=== PATIENT | male | born 1960 | race Caucasian/White ===

== ENCOUNTER 2018-09-19 11:43 | Outpatient (REF) | payer BC, SELFPAY ==
[2018-09-19 12:56] LABS: HCT 45.5 % (40.0-50.0); Mean Corpuscular Hemoglobin 28.6 pg (27.0-33.0); Mean Corpuscular Volume 86.7 fL (80-95); Mean Platelet Volume 12.8 fL (8.0-11.0); Platelet Count 153 x1000/uL (130-400); RBC 5.25 m/cumm (4.50-6.00); RBC Distribution Width 14.3 % (11.8-14.1); White Blood Cell Count 6.57 k/cumm (4.4-10.8)
[2018-09-19 13:43] LABS: Hemoglobin A1C 5.9 % (4.5-6.2)
[2018-09-19 15:26] LABS: ALT 39 U/L (12-78); AST 26 U/L (15-37); Albumin 3.8 g/dL (3.4-5.0); Alkaline Phosphatase 90 U/L (46-116); Anion Gap 9.8 mmol/L (3-11); BUN 21 mg/dL (7-18); Bilirubin, Total 1.1 mg/dL (0.2-1.0); CO2 28.2 mmol/L (21.0-32.0); CREATININE 1.13 mg/dL (0.70-1.30); Calcium 9.1 mg/dL (8.5-10.1); Chloride 103 mmol/L (98-107); Glucose 96 mg/dL (70-100); Potassium 4.4 mmol/L (3.5-5.1); Sodium 141 mmol/L (136-145); TSH (W/Ref FT4) 0.97 uIU/mL (0.358-3.74); Total Protein 7.7 g/dL (6.4-8.2)
[2018-09-19 15:43] LABS: Cholesterol 201 mg/dL (50-200); HDL Cholesterol 47 mg/dL (40-60); LDL CHOLESTEROL 134 mg/dL (<100); Triglyceride 89 mg/dL (30-150)
[2018-09-19 20:06] LABS: PROTEIN 9.2 mg/dL
[2018-09-19 20:52] LABS: COMMENT (LAB VIEW ONLY) 218.13 mg/dL; COMMENT (LAB VIEW ONLY) 218.14 mg/dL; Microalb ug/mg Crea 5.4 ug/mg Cr; Prot/Crea Ur Ratio 0.04
[2018-09-20 10:35] LABS: PSA, Screening 0.7 ng/ml (0-3.5)
== END 2018-09-19 12:03 ==
LOC: NCHCN 11:43
PROVIDERS: PCP Nurse Practitioner Family; Visit Provider Nurse Practitioner Family
DX: I10 Essential (primary) hypertension (principal); E78.5 Hyperlipidemia, unspecified; R53.83 Other fatigue; Z83.3 Family history of diabetes mellitus; Z13.1 Encounter for screening for diabetes mellitus; Z12.5 Encounter for screening for malignant neoplasm of prostate
CPT/HCPCS: 80053; 80061; 83721; 84153; 85027; 82043; 82565; 82570; 83036; 84156; 84443

== ENCOUNTER 2018-10-29 02:23 | Outpatient (CLI) | payer BC, SELFPAY ==
--- NOTE | 2018-11-01 11:10 | HOLTER_ITS ---
HOLTER MONITOR DATE OF DICTATION November 01, 2018 INDICATION Chest pain. Baseline sinus rhythm. Average heart rate 75 beats per minute. Minimum heart rate 49 beats per minute. Max heart rate 135 beats per minute. Moderate isolated PVCs. No nonsustained VT. Rare isolated PACs. No SVT or atrial fibrillation. No significant chadwick arrhythmias or pauses. No diary entries recorded. Overall sinus rhythm with isolated ectopy. No significant chadwick or tachyarrhythmias. Maykel Moreno M.D. Kip T - 11/01/18
== END 2018-10-29 02:43 ==
PROVIDERS: PCP Nurse Practitioner Family; Visit Provider Nurse Practitioner Family
DX: R07.89 Other chest pain (principal); I49.3 Ventricular premature depolarization
CPT/HCPCS: 93225

== ENCOUNTER 2018-10-31 14:58 | Outpatient (CLI) | payer BC, SELFPAY | END 2018-10-31 15:18 | PROVIDERS: PCP Nurse Practitioner Family; Visit Provider Nurse Practitioner Family | DX: R07.89 Other chest pain (principal); I49.3 Ventricular premature depolarization | CPT/HCPCS: 93226 ==

== ENCOUNTER 2019-03-01 02:19 | Emergency (ER) | payer BC, SELFPAY ==
[2019-03-01 02:21] VITALS: BP 183/103; PULSE 62; RESP 20; TEMP 37.1; O2SAT 99
--- NOTE | 2019-03-01 02:41 | ED.GENADUL_ITS ---
Discharge Plan Disposition Patient Disposition: HOME Condition: Good Discharge Details Chief Complaint: EyeProblem Clinical Impression: Corneal rust ring of right eye, Acute foreign body of right eye Primary Care Provider: Eri Francois ED Provider: Facundo Nieto Home Meds and New Rx's Prescriptions: No Action oxycodone-acetaminophen 1 TAB tablet 1 - 2 tab PO Q4H PRN PRNQty: 90 RF: 0 oxycodone-acetaminophen [Percocet] 1 EACH tablet 1 ea PO QID PRN PRNQty: 12 RF: 0 Discharge Instructions Instructions: Eye Foreign Body (ED) Additional Instructions: The metal foreign body was removed, and the majority of the rust ring was also removed. There is a very small minimal amount left. Please follow-up with the branch logistics supervisor as soon as possible for reassessment. If you are unable to get follow-up with your own branch logistics supervisor by tomorrow, please follow-up promptly with Dr. Valdez's office. Please use the erythromycin ointment as directed, apply a 1 inch ribbon 3 times daily to the affected eye. If you notice any worsening of your symptoms, or any new symptoms such as vomiting, diarrhea, fever, chills, shortness of breath, chest pain, numbness, weakness, or fainting , please return immediately to the emergency department for reevaluation. Please follow up with your primary care provider as soon as possible for reassessment and reevaluation. As always, it was a pleasure participating in your medical care today. [facility], [address] , [place] [address] [facility]errals: [facility] - Medical Decision Making This is a pleasant 59-year-old male who presents today for evaluation of a foreign body in his right eye. He got it in his eye yesterday when he is working on a car, comes in tonight due to continued pain and foreign body sensation. Exam demonstrates a small piece of metal and an associated rust ring on the medial component of the right eye at the most medial portion of the iris. Eversion of both lids demonstrate no evidence of other retained foreign body. No other uptake. Negative Jovanny sign. Using a TB needle the piece of metal was able to be easily extracted. Using the optical bur the rust ring was removed. Patient tolerated this all very well. Tetanus is up-to-date. [place] ssessment demonstrates no pain, normal visual acuity bilaterally. Patient will be given erythromycin ointment for 3 times daily application for comfort. We will recommend close follow-up with optometry. I have extensively reviewed the treatment plan and discharge instructions with the patient. I have addressed all patient concerns at this time. The patient was made aware of what symptoms to monitor for that would warrant a return to the emergency department. Discussed the plan with the patient, they demonstrate verbal understanding and agreement with our assessment and plan at this time. HPI General Date/Time Provider Initiated Documentation: 03/01/19 02:20 . HPI Narrative: This is a pleasant 59-year-old male with a past medical history of hypertension, who presents today for evaluation of a foreign body in his right eye. Patient states that he was working on a car when a small bit of rest got into his right eye. Tetanus was updated to the last 10 years. He does not wear contact lenses. Aside for the foreign body sensation he denies any other complaints at this time. No other modifying factors. Light does make the pain worse. He denies any significant discharge, headache, or other vision changes otherwise. Related Data Home Medications Medication Instructions Recorded Confirmed oxycodone-acetaminophen 1 - 2 tab PO Q4H PRN PRN #90 tab 11/25/14 06/29/15 oxycodone-acetaminophen [Percocet 1 ea PO QID PRN PRN #12 tablet 06/29/15 5-325 mg Tablet] Previous Rx's Medication Instructions Recorded oxycodone-acetaminophen 1 - 2 tab PO Q4H PRN PRN #90 tab 11/25/14 oxycodone-acetaminophen [Percocet 1 ea PO QID PRN PRN #12 tablet 06/29/15 5-325 mg Tablet] Allergies Allergy/AdvReac Type Severity Reaction Status Date / Time Penicillins AdvReac Intermediate Nausea Unverified 06/29/15 21:28 General Stated Complaint: EyeProblem ELIZABETH: 3 Review of Systems Review of Systems All systems reviewed & are unremarkable except as noted in HPI and below PFSH Social History Smoking/Tobacco Use Status: Former Tobacco Use Alcohol Intake: current Alcohol Intake frequency: a few times a week Drug use: Never Do you feel safe at home: Yes Do you feel safe in your relationship?: Yes Exam Narrative Exam Narrative: 1.Const: Well-nourished, Well-developed, appearing stated age 2.Eyes: Right eye: EOMI, PERRL, Peripheral vision intact. No nystagmus. Fundoscopic exam shows normal optic discs and normal vasculature. No external s igns of preseptal cellulitis, no redness around the eye, no proptosis. No hyphema, no signs of trauma around the eye, no periorbital emphysema. Fluorescein exam positive for uptake with a small piece of metal/rust at the 3 o'clock position just medial to the pupil on the far medial component of the iris. Mild rust ring is noted surrounding this negative Jovanny sign. 3.ENT: Atraumatic external nose and ears. Moist MM. Neck: Symmetric, trachea midline, No thyromegaly. 4.CVS: +S1/S2, No murmurs or gallops. Peripheral pulses 2+ and equal in all extremities. Brisk capillary refill in all extremities. 5.RESP: Unlabored respiratory effort. Clear to auscultation bilaterally. No wheezes rales or rhonchi 6.GI: Soft, Nontender/Nondistended, No hepatosplenomegaly. No guarding or rebound. 7.MSK: Normocephalic/Atraumatic, Extremities w/o deformity or ttp No cyanosis or clubbing, Normal movement of all extremities 8.Skin: Warm, Dry. No rashes or lesions. 9.Neuro: terminal gauger II-XII grossly intact. Sensation grossly intact, no focal neurologic deficits. 10.Psych: (AAO) x3. Appropriate mood and affect Course Vital Signs Temperature 37.1 C 03/01/19 02:21 Pulse 62 03/01/19 02:21 Respiratory Rate 20 03/01/19 02:21 Blood Pressure 183/103 H 03/01/19 02:21 Pulse Oximetry 99 03/01/19 02:21 Temperature 37.1 C 03/01/19 02:21 Temperature Source Tympanic 03/01/19 02:21 Pulse 62 03/01/19 02:21 Respiratory Rate 20 03/01/19 02:21 Respiratory Effort 03/01/19 02:24 Blood Pressure 183/103 H 03/01/19 02:21 Pulse Oximetry 99 03/01/19 02:21 Oxygen Delivery Method Room Air 03/01/19 02:21 Oxygen Flow Rate 0 03/01/19 02:21 Pain Level 0 03/01/19 02:21
--- NOTE | 2019-03-01 02:44 | NUR.NOTE ---
Nursing NoteFAXED NOTE AND REQUEST TO [facility] 03/01/19:
[2019-03-01 02:51] VITALS: BP 189/110; PULSE 76; RESP 20; O2SAT 97
== END 2019-03-01 02:51 | disposition home or self-care (01) ==
PROVIDERS: Emergency Provider Student in an Organized Health Care Education/Training Program; PCP Nurse Practitioner Family
DX: T15.01XA Foreign body in cornea, right eye, initial encounter (principal); I10 Essential (primary) hypertension
CPT/HCPCS: 65220

== ENCOUNTER 2019-10-14 13:38 | Outpatient (REF) | payer BC, SELFPAY ==
[2019-10-14 13:54] LABS: HCT 45.3 % (40.0-50.0); HGB 14.9 g/dL (13.5-17.5); Mean Corp. HGB Concentration 32.9 g/dL (32.0-36.0); Mean Corpuscular Hemoglobin 28.4 pg (27.0-33.0); Mean Corpuscular Volume 86.5 fL (80-95); Mean Platelet Volume 13.3 fL (8.0-11.0); Platelet Count 153 x1000/uL (130-400); RBC 5.24 m/cumm (4.50-6.00); RBC Distribution Width 14.2 % (11.8-14.1)
[2019-10-14 13:59] LABS: Anion Gap 10.7 mmol/L (3-11); BUN 16 mg/dL (7-18); CO2 25.3 mmol/L (21.0-32.0); CREATININE 1.09 mg/dL (0.70-1.30); Calcium 8.5 mg/dL (8.5-10.1); Chloride 104 mmol/L (98-107); Glucose 120 mg/dL (74-106); Potassium 3.9 mmol/L (3.5-5.1); Sodium 140 mmol/L (136-145)
[2019-10-14 14:13] LABS: Hemoglobin A1C 5.9 % (3.8-5.6)
== END 2019-10-14 13:58 ==
LOC: NCHCN 13:38
PROVIDERS: PCP Nurse Practitioner Family; Visit Provider Nurse Practitioner Family
DX: R73.03 Prediabetes (principal); I10 Essential (primary) hypertension; R51 Headache
CPT/HCPCS: 80048; 85027; 83036

== ENCOUNTER 2019-10-20 07:31 | Emergency (ER) | payer BC, SELFPAY ==
[2019-10-20] VITALS (29 sets, daily range): BP systolic 132–206; BP diastolic 71–117; PULSE 61–84; RESP 15–23; TEMP 36.8; O2SAT 89–97
--- NOTE | 2019-10-20 07:40 | ED.GENADUL_ITS ---
Discharge Plan Disposition Patient Disposition: HOME Condition: Improving Discharge Details Chief Complaint: Headache Clinical Impression: Headache, Hypertensive urgency, Aneurysm, cerebral, nonruptured Primary Care Provider: Henri Kern ED Provider: Karena Pina Home Meds and New Rx's Prescriptions: New amlodipine 2.5 mg tablet 2.5 mg PO DAILY Qty: 14 RF: 0 ondansetron 4 mg tablet,disintegrating 4 mg PO Q6H PRN (Reason: nausea and vomiting) Qty: 14 RF: 0 Continued atorvastatin [Lipitor] 20 mg Tablet 20 mg PO .QHS RF: 0 lisinopril 20 mg Tablet 20 mg PO DAILY RF: 0 clobetasol 0.05 % Cream TOPICAL BID RF: 0 aspirin 81 mg Tablet,Delayed Release (Dr/Ec) 81 mg PO DAILY RF: 0 omeprazole 20 mg Capsule,Delayed Release(Dr/Ec) 20 mg PO DAILY RF: 0 Flovent HFA 220 mcg/actuation Hfa Aerosol Inhaler 2 puff INHALATION BID RF: 0 albuterol sulfate [ProAir HFA] 90 mcg/actuation Hfa Aerosol Inhaler 2 puff INHALATION .BEFORE EXERCISE PRNRF: 0 fluticasone propionate [Flonase Allergy Relief] 50 mcg/actuation [place],Suspension 1 spray INTRANASAL BID RF: 0 Discharge Instructions Instructions: Hypertension (ED), General Headache (ED), Nonruptured Cerebral Aneurysm (GEN) Additional Instructions: Please continue medications as previously prescribed. Please add the daily amlodipine to help with your blood pressure. It is felt that this elevation of blood pressure may have been what caused her headache today. Incidentally, your noted to have a nonruptured aneurysm on your imaging today. I did speak with neurosurgery who would like to follow-up with you to discuss surgical management of this to help prevent rupture. Please call tomorrow morning to schedule follow-up appointment [phone]. This is with neurosurgery at [facility], you will need follow-up with Dr. Fuchs. I also spoke with your primary care, they are expecting to see you this week. Please call tomorrow morning to schedule close follow-up appointment. Appointment will be held in the parking lot to help prevent exposure to any illness. If develop fever/chills, increased pain, inability stay hydrated or other new/worsening symptoms please seek care urgently once again. Otherwise, please call primary care tomorrow morning to schedule appointment. Referrals: Henri Kern NP [Primary Care Provider] - Medical Decision Making Patient is a pleasant 59-year-old male presenting today with chief complaint of headache x2 weeks. Patient has past medical history significant hypertension per patient report. States that he has had constant headache for the past 2 weeks. States that ibuprofen has alleviated this time. States that today the headache is increased and is now reporting that he has some nausea and blurred vision. When I was evaluating the patient initially, he did begin vomiting which is new since the onset of headache 2 weeks ago. States he has been having difficulty sleeping secondary to the pain. He reports he has never had headaches like this historically. He is not anticoagulated, no history of bleed, no history of stroke or other intracranial abnormality. States that the headache was a sudden onset and has been persistent with no notable exacerbating sources. Patient has been seen twice by his primary care provider. Is in her last note, and they had been concerned that this was seasonal allergies and treated as such. He reports that he has been taking his medications as were prescribed 2 days ago and reports that the pain has continued to increase despite Benadryl, Flonase, sertraline. Patient was noted to be slightly hypertensive in the office with a blood pressure of 140/86. Measurements at home have been similar. He denies any neck pain. No rash. No fevers or chills. Denies any recent travel. Denies any chest pain or shortness of breath. On exam, patient appears uncomfortable. He is an obese male. She did be hypertensive with a blood pressure of 206/99. His neurologic exam is intact without any abnormality. He has no nuchal rigidity. He has normal cardiac and respiratory exam. No rashes noted. Shortly after my physical exam, the patient did begin actively vomiting. Patient will receive Ativan and Zofran. Is unclear at this time if the blood pressure is secondary to the patient's increased vomiting as he did not have this at his previous visits for the same complaint. Plan to image the patient with and without contrast. EKG was obtained and reviewed by Dr. Mejia. Patient is in a normal sinus rhythm with a rate of 79 with no acute ischemic changes noted. Patient returned from CT, I do not see any evidence of bleed on my review, awaiting radiology review. He continues to report mild nausea and headache although he reports that things are improving. We will augment this with Reglan and Benadryl. CBC is without significant abnormality. No abnormalities noted in his coagulation studies. Glucose is slightly high at 119 but otherwise CMP is within normal limits. TSH, troponin and ESR pending. Consulted by radiologist who advised that they note left 7mm left ICA. No evidence of active bleeding. Likely other small aneurysms. Contacted neurosurgery at [facility] for consultation. Patient is more comfortable at this time, blood pressure has come down at 144/71. Dr. Sewell with neurosurgery at [facility], he advised clinic f/u this week. Advisec could be hypertensive urgency as well. Does not feel that this is likely associated with the aneurysm. He advised no specific BP goals. He advised referral to Dr. Fuchs who is neurovascular surgeon. Needs overall cardiovascular control Spoke with Henri Hanson NP who advised amlodipine or HCTZ. She is concerned that patient may not be compliant with HCTZ so we have decided on amlodipine. Will start off at 2.5mg. She will see the patient in the parking lot this week for reevaluation at the clinic for BP recheck and eval. She is aware of the recommendations set forth by neurosurgery. Discussed these findings, concerns and recommendations with the patient. He will be given his dosing of Amlodipine here and we will discharge home with close follow up. Patient was given strict return precautions. I encouraged generalized healthy lifestyle. He will continue with his previously prescribed medications. Prescription for amlodipine was given to the patient. We will also prescribe Zofran in the event that he has any recurrence of his nausea as this may also have led to an increase in his blood pressure. He was given strict return precautions. We will contact both neurosurgery as well as primary care tomorrow. All his questions and concerns were addressed and he is in agreement this plan. HPI General Mode of arrival: ambulatory . Date/Time Provider Initiated Documentation: 10/20/19 07:40 . Limitations to Documentation: no limitations . Information obtained by: patient and RN notes reviewed . History of Present Illness 59 year old M presents to the emergency department with the chief complaint of headache, described as severe, with intensity rated at 8. Quality is described as stabbing, and is localized to the head. Patient reports no radiation. Patient started experiencing this week(s) (2) and it has been constant. Medication improves symptom(s), (some relief with ibuprofen) No exacerbating factors reported . Patient notes headaches, loss of appetite and nausea/vomiting; denies chest pain, cough, diaphoresis, fever/chills, rash, shortness of breath, syncope and weakness. Patient did receive the following treatments prior to arrival, none Related Data Home Medications Medication Instructions Recorded Confirmed Flovent HFA 2 puff INHALATION BID 10/20/19 10/20/19 albuterol sulfate [ProAir HFA] 2 puff INHALATION .BEFORE EXERCISE 10/20/19 10/20/19 PRN amlodipine 2.5 mg PO DAILY #14 tab 10/20/19 aspirin 81 mg PO DAILY 10/20/19 10/20/19 atorvastatin [Lipitor] 20 mg PO .QHS 10/20/19 10/20/19 clobetasol TOPICAL BID 10/20/19 fluticasone propionate [Flonase 1 spray INTRANASAL BID 10/20/19 10/20/19 Allergy Relief] lisinopril 20 mg PO DAILY 10/20/19 10/20/19 omeprazole 20 mg PO DAILY 10/20/19 10/20/19 ondansetron 4 mg PO Q6H PRN #14 tab 10/20/19 Previous Rx's Medication Instructions Recorded amlodipine 2.5 mg PO DAILY #14 tab 10/20/19 ondansetron 4 mg PO Q6H PRN #14 tab 10/20/19 Allergies Allergy/AdvReac Type Severity Reaction Status Date / Time Penicillins AdvReac Intermediate Nausea Unverified 10/20/19 07:42 General ELIZABETH: 3 Review of Systems Constitutional Constitutional: Reports as per HPI, Denies chills, Reports fatigue, Denies fever(s), Denies frequent falls, Reports headache(s), Denies snoring and Denies weakness Eyes Eyes: Reports as per HPI, Denies blurry vision, Reports change in vision (feels this morning like it is slightly blurred) and Denies photophobia ENT Ears, Nose, Mouth, and Throat: Denies vertigo, Reports headache(s) and Denies neck pain Cardiovascular Cardiovascular: Reports as per HPI, Denies chest pain, Reports lightheadedness, Denies radiating jaw, neck or arm pain, Denies dyspnea and Denies dyspnea on exertion Respiratory Respiratory: Reports as per HPI, Denies chest congestion, Denies cough, Denies dyspnea, Denies dyspnea on exertion, Denies snoring, Denies stridor and Denies wheezing Gastrointestinal Gastrointestinal: Reports as per HPI, Denies abdominal pain, Denies change in bowel habits, Reports nausea and Denies vomiting Genitourinary Genitourinary: Reports system reviewed and no additional complaints, except as documented (denies change in urinary habits) Musculoskeletal Musculoskeletal: Reports as per HPI, Denies back pain, Denies myalgias, Denies muscle cramps, Denies neck pain and Denies numbness Integumentary/Breasts Skin/Breast: Reports as per HPI and Denies rash Neurologic Neurologic: Reports as per HPI, Denies abnormal movements, Denies abnormal speech, Denies behavioral changes, Denies confusion, Denies vertigo, Denies frequent falls, Reports headache(s), Denies localized weakness, Denies numbness, Denies sensory deficit and Denies weakness Psychiatric Psychiatric: Denies behavioral changes and Denies confusion Endocrine Endocrine: Reports fatigue Allergic/Immunologic Allergic/Immunologic: Denies wheezing [facility] Social History Smoking/Tobacco Use Status: Former Tobacco Use Alcohol Intake: current Alcohol Intake frequency: a few times a week Drug use: Never Do you feel safe at home: Yes Do you feel safe in your relationship?: Yes Exam Const General: cooperative, uncomfortable, no acute distress, well developed, well groomed and ill appearing acutely Nutritional Appearance: well nourished and obese Orientation: alert, awake and oriented x3 HENMT Head: normal to inspection, no palpable skull fracture, normocephalic and atraumatic Ears: hearing grossly normal bilaterally, external ears normal and TM's normal bilaterally General nose exam: external nose normal Mouth: oral mucosae normal, lip normal, tongue normal and mucous membranes dry (appears dry) Throat: posterior oropharynx normal Eyes General: appearance normal, both eyes and all related structures Visual Green: normal visual green by confrontation Alignment and Position: alignment normal Periorbital: periorbital findings normal Eyelids: eyelids normal Sclera: sclerae normal Cornea: corneas normal Pupils: PERRL EOM: EOM intact bilaterally Neck Neck: normal visual inspection, full ROM, no lymphadenopathy and no meningeal signs Resp Effort & Inspection: normal respiratory effort, able to speak in complete sentences and no respiratory distress Auscultation: clear to auscultation bilaterally, no rales, no rhonchi and no wheezes Cardio Rate: regular rate Rhythm: regular rhythm Heart Sounds: S1 normal and S2 normal GI Inspection: normal to inspection, non-distended and obesity Palpation: soft, no hepatosplenomegaly, not firm, no guarding, not rigid and nontender Percussion: normal to percussion Auscultation: normal bowel sounds Back/Spine/Pelvis Cervical Spine: normal cervical lordosis and cervical ROM normal Skin General skin exam: no rashes or lesions noted Neuro General: patient alert, patient awake and patient oriented x3 Cranial Nerves: CN's II-XI intact bilaterally Cognition: normal cognition Speech: speech normal Gait: normal gait Motor: muscle tone normal throughout, strength 5/5 throughout, no pronator drift, no movement abnormalities noted and no fasciculations Sensory Exam: no sensory deficits noted Coordination: [id number] test normal and [id number] test normal Extrem General: normal to inspection, capillary refill normal, no pedal edema and no calf tenderness Psych Appearance: grossly normal and well kempt Mental Status: mental status grossly normal Speech and Movement: speech and movement normal
--- NOTE | 2019-10-20 07:57 | DI.CT_ITS ---
EXAM: CT BRAIN NECK CTA CLINICAL HISTORY: SORIA 2 weeks, vomiting, hypertensive TECHNIQUE: Axial CT angiography was performed with multi-slice acquisition and multi-planar and/or 3 D reconstructions. COMPARISON: No exams were available for comparison FINDINGS: Noncontrast cranial CT was initially performed and shows no evidence of acute intracranial hemorrhage , mass effect, or midline shift. The orbital and temporal bone structures appear intact. CT angiography of the neck and head was performed with intravenous infusion of 100 cc of Omnipaque 35 0. Aortic arch is nonvisualized. There is minimal calcified plaque of the carotid bulbs bilaterally. O therwise the common, internal, and external carotid arteries as visualized appear within normal limit s. Slightly left dominant vertebral artery circulation. Otherwise the vertebral arteries and basilar ar jarocho as visualized appear intact. No aneurysm, stenosis, or dissection. Intracranially, the vertebrobasilar circulation is unremarkable as described above. Unremarkable belen earance of the posterior cerebral arteries bilaterally. Intracranial right internal carotid artery is unremarkable except for a questionable 2 millimeter rig ht supraclinoid saccular aneurysm, this is a questionable finding. On the left, the supraclinoid internal carotid artery gives rise to saccular aneurysm measuring up to about 5 x 7 x 5 millimeters in diameter with about a 3 x 2 millimeter diameter neck. An additional questionable 2 millimeter aneurysm may be present just distal to this aneurysm. The middle and anterior cerebral arteries are unremarkable in appearance bilaterally as are their bra nches. No intracranial mass lesion or enhancing lesion. 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 Additional tiny ICA aneurysms may be present in the supraclinoid portion bilaterally, these measure n o more than 2 millimeter in diameter if present.
[2019-10-20] MEDS: Normal Saline 1,000 ML 150 ML IV (08:00)
[2019-10-20] MEDS: Ondansetron 4 MG/2 ML VIAL IVP (08:00)
[2019-10-20 08:06] LABS: Abs Immature Grans 0.03 k/cumm (0.0-0.09); Absolute Basophil Count 0.01 k/cumm (0.0-0.2); Absolute Eosinophil Count 0.12 k/cumm (0.0-0.7); Absolute Lymphocyte Count 2.04 k/cumm (1.2-3.4); Absolute Monocyte Count 0.59 k/cumm (0.11-0.7); Absolute Neutrophil Count 5.97 k/cumm (1.2-6.7); Basophils % 0.1; Eosinophils % 1.4; HGB 16.3 g/dL (13.5-17.5); Immature Grans % 0.3 %; Lymphocytes % 23.3; Mean Corp. HGB Concentration 33.3 g/dL (32.0-36.0); Mean Corpuscular Hemoglobin 28.4 pg (27.0-33.0); Mean Corpuscular Volume 85.4 fL (80-95); Mean Platelet Volume 12.1 fL (8.0-11.0); Monocytes % 6.7; Neutrophils % 68.2; Platelet Count 197 x1000/uL (130-400); RBC 5.74 m/cumm (4.50-6.00); RBC Distribution Width 14.4 % (11.8-14.1); White Blood Cell Count 8.76 k/cumm (4.4-10.8)
[2019-10-20] MEDS: LORazepam 2 MG/ML VIAL 1 MG IVP (08:10)
[2019-10-20] MEDS: Normal Saline Flush 10 ML SYR IVP (08:14)
[2019-10-20 08:20] LABS: ALT 49 U/L (16-63); AST 24 U/L (15-37); Albumin 4.1 g/dL (3.4-5.0); Alkaline Phosphatase 89 U/L (46-116); Anion Gap 10.2 mmol/L (3-11); BUN 16 mg/dL (7-18); CO2 26.8 mmol/L (21.0-32.0); CREATININE 0.97 mg/dL (0.70-1.30); Calcium 9.2 mg/dL (8.5-10.1); Chloride 102 mmol/L (98-107); Glucose 119 mg/dL (74-106); PTT Activated 24.3 sec (21.0-31.4); Potassium 4.1 mmol/L (3.5-5.1); Sodium 139 mmol/L (136-145); Total Protein 8.4 g/dL (6.4-8.2)
[2019-10-20] MEDS: Omnipaque 350 MG/ML 100 ML BTL IJ (08:24)
[2019-10-20] MEDS: Metoclopramide 10 MG/2 ML VIAL IVP (08:32)
[2019-10-20] MEDS: diphenhydrAMINE 50 MG/ML VIAL 25 MG IVP (08:39)
[2019-10-20 08:42] LABS: ESR 12 mm/hr (1-20)
[2019-10-20 08:53] LABS: Magnesium 2.1 mg/dL (1.8-2.4); TSH (W/Ref FT4) 1.29 uIU/mL (0.36-3.74); Troponin I < 0.05 ng/Ml (<0.06)
--- NOTE | 2019-10-20 09:10 | DI.VRAD_ITS ---
Addendum created by Vito Roldan MD on 10/20/2019 9:12:08 AM EDT The section for the left middle cerebral artery should say: No occlusion or significant stenosis. No aneurysm. Initial report created on 10/20/2019 9:10:16 AM EDT PROCEDURE INFORMATION: Exam: CT Angiography Head With Contrast Exam date and time: 10/20/2019 8:15 AM Age: 59 years old Clinical indication: Pain; Headache; Prior surgery TECHNIQUE: Imaging protocol: Computed tomography angiography of the head with intravenous contrast. 3D rendering: MIP and/or 3D reconstructed images were created by the technologist. COMPARISON: No relevant prior studies available. FINDINGS: Right internal carotid artery: Possible 2 mm right supraclinoid internal carotid artery saccular aneurysm which projects posterior and inferior (axial CT a image [address] a maximum intensity projection image 37). Right anterior cerebral artery: No occlusion or significant stenosis. No aneurysm. Right middle cerebral artery: No occlusion or significant stenosis. No aneurysm. Right posterior cerebral artery: No occlusion or significant stenosis. No aneurysm. Right vertebral artery: No occlusion or significant stenosis. No aneurysm. Left internal carotid artery: There is a saccular cerebral aneurysm visualized posterior and inferior to the left supraclinoid internal carotid artery (ICA) within ovoid shaped measuring 5 mm x 7 mm x 5 mm (TV x AP x CC) with a neck of approximately 3 mm x 2 mm (TV x CC) (axial CTA images [address] maximum intensity projection image 30). There may be an additional 2 mm aneurysm just distal (series 12, image 383 and series 13, image 30). Left anterior cerebral artery: No occlusion or significant stenosis. No aneurysm. Left middle cerebral artery: There is no evidence of uncal or subfalcine herniation. Left posterior cerebral artery: No occlusion or significant stenosis. No aneurysm. Left vertebral artery: No occlusion or significant stenosis. No aneurysm. Basilar artery: No occlusion or significant stenosis. No aneurysm. Other vasculature: Atherosclerotic calcifications of the intracranial arteries. HEAD: Brain: Subtle small hypodensities within the bilateral external capsules, likely sequelae of prior lacunar infarct. No cervantes-white matter obscuration. There is no evidence of acute hemorrhage within the brain parenchyma or the subarachnoid space. Ventricles: There is no significant ventricular effacement or midline shift. Auditory system: Debris within the left external auditory canal, likely cerumen. IMPRESSION: 1. Left internal carotid supraclinoid saccular/ovoid aneurysm which projects posterior/inferior measuring up to 7 mm in maximal dimension with a neck of approximately 2-3 mm as described above. 2. Possible smaller posteriorly projecting 2 mm aneurysm of the supraclinoid left ICA just distal to the larger aneurysm described above. 3. Likely 2 mm right supraclinoid internal carotid artery saccular aneurysm which projects posterior/inferior. 4. No evidence of intracranial hemorrhage. THIS REPORT CONTAINS FINDINGS THAT MAY BE CRITICAL TO PATIENT CARE. The findings were verbally communicated via telephone conference with JOVANNA MORRELL at 9:04 AM EDT on 10/20/2019. The findings were acknowledged and understood. PROCEDURE INFORMATION: Exam: CT Angiography Neck With Contrast Exam date and time: 10/20/2019 8:15 AM Age: 59 years old Clinical indication: Pain; Headache; Prior surgery TECHNIQUE: Imaging protocol: Computed tomography angiography of the neck with intravenous contrast. 3D rendering: MIP and/or 3D reconstructed images were created by the technologist. COMPARISON: No relevant prior studies available. FINDINGS: VASCULATURE: Right common carotid artery: No stenosis. No dissection or occlusion. Right internal carotid artery: No stenosis of the extracranial segment. No dissection or occlusion. Right external carotid artery: No occlusion or stenosis of the origin. Right vertebral artery: No stenosis. No dissection or occlusion. Left common carotid artery: No stenosis. No dissection or occlusion. Left internal carotid artery: No stenosis of the extracranial segment. No dissection or occlusion. Left external carotid artery: No occlusion or stenosis of the origin. Left vertebral artery: No stenosis. No dissection or occlusion. NECK: Bones/joints: No acute fracture. Spondylosis. Irregularity to the left clavicle, distal 3rd may represent sequelae of prior injury. Soft tissues: Normal. No significant soft tissue swelling. IMPRESSION: No stenosis or occlusion. COMMENTS: Using NASCET method for measuring degree of carotid artery stenosis: Mild is less than 50% stenosis. Moderate is 50-69% stenosis. Severe is 70-94% stenosis. Near occlusion is 95-99% stenosis. Dictated and Authenticated by: Vito Roldan MD. Ordering:BLAKE Thurston MD
[2019-10-20] MEDS: amLODIPine 2.5 MG TAB PO (10:38)
== END 2019-10-20 10:42 | disposition home or self-care (01) ==
PROVIDERS: Emergency Provider Physician Assistant; PCP Nurse Practitioner Family
DX: I16.0 Hypertensive urgency (principal); I67.1 Cerebral aneurysm, nonruptured; R11.2 Nausea with vomiting, unspecified; H53.8 Other visual disturbances; I10 Essential (primary) hypertension
CPT/HCPCS: 36415; 70496; 70498; 80053; 85652; 93005; 96361; 96374; 96375; 99285; 83735; 84443; 84484; 85025; 85610; 85730; 93010; 99284; J1200; J2060; J2405; J2765; J3490

== ENCOUNTER 2019-10-21 08:47 | Emergency (ER) | payer BC, SELFPAY ==
[2019-10-21] VITALS (30 sets, daily range): BP systolic 157–208; BP diastolic 83–108; PULSE 61–85; RESP 7–20; TEMP 36.9–37.3; O2SAT 96–98
--- NOTE | 2019-10-21 09:30 | DI.CT_ITS ---
EXAM: CT HEAD - STROKE PROTOCOL CLINICAL HISTORY: CN III palsy, ptosis TECHNIQUE: COMPARISON: CT BRAIN NECK CTA from 10/20/2019 CT BRAIN NECK CTA from 10/20/2019 FINDINGS: Noncontrast cranial CT was performed. Yesterday's examination including noncontrast and CT angiograp hy showed 7 millimeter left ICA aneurysm as well as additional small questionable aneurysms. On today's noncontrast examination, there is no evidence of acute intracranial hemorrhage, mass effec t, or midline shift. No change in appearance from yesterday's noncontrast examination. IMPRESSION: Stable noncontrast scan, no evidence of acute intracranial hemorrhage.
--- NOTE | 2019-10-21 09:36 | W.ED.GENAD ---
Discharge Plan Discharge Details Chief Complaint: EyeProblem Primary Care Provider: Henri Kern ED Provider: Rosario Andre Home Meds and New Rx's Prescriptions: No Action atorvastatin [Lipitor] 20 mg Tablet 20 mg PO .QHS RF: 0 lisinopril 20 mg Tablet 20 mg PO DAILY RF: 0 clobetasol 0.05 % Cream TOPICAL BID RF: 0 aspirin 81 mg Tablet,Delayed Release (Dr/Ec) 81 mg PO DAILY RF: 0 omeprazole 20 mg Capsule,Delayed Release(Dr/Ec) 20 mg PO DAILY RF: 0 Flovent HFA 220 mcg/actuation Hfa Aerosol Inhaler 2 puff INHALATION BID RF: 0 albuterol sulfate [ProAir HFA] 90 mcg/actuation Hfa Aerosol Inhaler 2 puff INHALATION .BEFORE EXERCISE PRNRF: 0 fluticasone propionate [Flonase Allergy Relief] 50 mcg/actuation [place],Suspension 1 spray INTRANASAL BID RF: 0 amlodipine 2.5 mg tablet 2.5 mg PO DAILY Qty: 14 RF: 0 ondansetron 4 mg tablet,disintegrating 4 mg PO Q6H PRN (Reason: nausea and vomiting) Qty: 14 RF: 0 Discharge Data Discharge Date/Time-TO BE ENTERED AT DEPARTURE: 10/21/19 13:42 Medical Decision Making Jose Samayoa is a 59-year-old man with a history of hypertension, GERD, peptic ulcer disease diagnosed with left ICA aneurysm yesterday who presented to the emergency department with new gradual onset left-sided ptosis now complete. Headache 1 out of 10. On exam patient is well and nontoxic-appearing. Complete left-sided ptosis, left pupil 5 mm and nonreactive, reduced left-sided extraocular movements. Otherwise nonfocal neurologic exam. Concern for stroke versus other sequelae of internal carotid aneurysm, other emergent pathologies causing CN III dysfunction. Doubt ruptured aneurysm given patient reporting headache much improved from yesterday. Exam/hx not c/w acute CVA in TPA window, sepsis, meningitis. I discussed the patient with Dr. Mckee of neurology, who requested CT head, CTA brain and neck. Plan for CT head, CTA brain and neck, screening labs, chest x-ray, EKG. CT head negative with no change from imaging yesterday per radiology, Dr. Guerrero of radiology requests that patient not undergo repeat CTA given results of CT head. He states that CT at this facility is not high enough resolution to give appropriate results given patient's imaging studies yesterday and presentation today, and he requests that transfer to [facility] be attempted. I did discuss this with Dr. Mckee of neurology who agrees. [facility] transfer center contacted, awaiting callback. On reassessment, patient reports no change in his symptoms. I spoke with neurosurgery on-call, Dr. Mena, who stated no acute intervention at this time, recommended neurology evaluation at [facility] emergency department. Callback from [facility], discussed patient with Dr. Shields of neurology, who stated no immediate transfer, requested MRI brain with and without contrast at this facility. MRI ordered. 11:20: Patient refusing MRI, states that he has failed MRI with anxiolytic in the past, has needed to have open MRI. Patient stating no change in his symptoms on reassessment. Transfer center at [facility] contacted. Received callback from transfer center, Dr. Kevin is accepting physician for transfer to [facility], no other acute intervention recommended. Awaiting bed assignment. Received bed assignment. Pt with no change in symptoms. Pt transferred out of ED with medics without issue. Clinical Impression: Cranial nerve III dysfunction Disposition: [facility] Medical Records Medical records reviewed: Yes I reviewed the patient's medical records. Lab Data Lab results reviewed: Yes I reviewed the patient's lab results. Labs: Laboratory Tests Range/Units 10/21/19 10/21/19 10/21/19 11:30 11:30 11:30 WBC (4.4-10.8) k/cumm 8.34 RBC (4.50-6.00) m/cumm 5.37 Hgb (13.5-17.5) g/dL 15.5 Hct (40.0-50.0) % 45.9 MCV (80-95) fL 85.5 MCH (27.0-33.0) pg 28.9 MCHC (32.0-36.0) g/dL 33.8 RDW (11.8-14.1) % 14.3 H Plt Count (130-400) x1000/uL 158 MPV (8.0-11.0) fL 12.3 H Immature Gran % % 0.4 Neutrophils % 73.2 Lymphocytes % 18.1 Monocytes % 7.6 Eosinophils % 0.6 Basophils % 0.1 Absolute Neutrophils (1.2-6.7) k/cumm 6.11 Absolute Lymphocytes (1.2-3.4) k/cumm 1.51 Absolute Monocytes (0.11-0.7) k/cumm 0.63 Absolute Eosinophils (0.0-0.7) k/cumm 0.05 Absolute Basophils (0.0-0.2) k/cumm 0.01 PT (9.3-11.0) sec 9.9 INR (0.9-1.1) 1.0 Sodium (136-145) mmol/L 137 Potassium (3.5-5.1) mmol/L 3.9 Chloride (98-107) mmol/L 101 Carbon Dioxide (21.0-32.0) mmol/L 27.4 Anion Gap (3-11) mmol/L 8.6 BUN (7-18) mg/dL 16 Creatinine (0.70-1.30) mg/dL 0.92 Estimated GFR/1.73 m2 (mL/min/1.73m2) >= 60.00 Glucose (74-106) mg/dL 97 Calcium (8.5-10.1) mg/dL 8.8 ECG Data Attestation: I personally reviewed and interpreted this ECG (s) as follows: Interpretation: EKG shows sinus rhythm at 65, normal axis, no STEMI, nondiagnostic EKG HPI General Mode of arrival: ambulatory. Date/Time Provider Initiated Documentation: 10/21/19 08:55. Limitations to Documentation: no limitations. Information obtained by: patient, RN notes reviewed and old records reviewed. HPI Narrative: Jose Samayoa is a 59 y/o man with history of GERD, peptic ulcer disease, hypertension presenting to the emergency department with left eye ptosis. Patient was seen here in the emergency department yesterday for 2 weeks of headache, in setting of patient not typically having headaches. Patient had IV fluid hydration, Reglan, Zofran, Benadryl, Ativan with significant improvement in his headache. Patient had CT head and CTA brain and neck showing 7 mm left ICA aneurysm. Neurosurgery at [facility] was consulted, no further acute intervention was recommended, and patient was discharged to home. Patient reports that his headache has been very mild since leaving the emergency department yesterday. He rates it as a 1 out of a 10 currently, reports that headache is same location as it has been over the past 2 weeks, left frontal area. Patient reports that gradually overnight he noticed that his left eye seemed to be drooping, and now is completely closed. He has not noticed any visual disturbance. Patient denies any other pain, numbness, weakness, fever, vomiting, diarrhea, shortness of breath, cough or rash. Patient reports that he feels otherwise in his usual state of health. Related Data Home Medications Medication Instructions Recorded Confirmed Flovent HFA 2 puff INHALATION BID 10/20/19 10/21/19 albuterol sulfate [ProAir HFA] 2 puff INHALATION .BEFORE EXERCISE 10/20/19 10/21/19 PRN amlodipine 2.5 mg PO DAILY #14 tab 10/20/19 10/21/19 aspirin 81 mg PO DAILY 10/20/19 10/21/19 atorvastatin [Lipitor] 20 mg PO .QHS 10/20/19 10/21/19 clobetasol TOPICAL BID 10/20/19 fluticasone propionate [Flonase 1 spray INTRANASAL BID 10/20/19 10/21/19 Allergy Relief] lisinopril 20 mg PO DAILY 10/20/19 10/21/19 omeprazole 20 mg PO DAILY 10/20/19 10/21/19 ondansetron 4 mg PO Q6H PRN #14 tab 10/20/19 10/21/19 Previous Rx's Medication Instructions Recorded amlodipine 2.5 mg PO DAILY #14 tab 10/20/19 ondansetron 4 mg PO Q6H PRN #14 tab 10/20/19 Allergies Allergy/AdvReac Type Severity Reaction Status Date / Time Penicillins AdvReac Intermediate Nausea Unverified 10/21/19 12:49 General Stated Complaint: EyeProblem ELIZABETH: 3 Review of Systems Narrative: Constitutional: denies fevers Eyes: denies eye pain, visual change, reports left eyelid drooping ENT: denies ear pain, dental pain, sore throat Cardiovascular: denies chest pain, edema Respiratory: denies SOB, cough GI: denies abdominal pain, vomiting, diarrhea : denies flank pain MSK: denies back pain, neck pain, arthralgias, myalgias Skin: denies rash Neuro: denies numbness, weakness, reports mild headache PFSH Social History Smoking/Tobacco Use Status: Former Tobacco Use Alcohol Intake: current Alcohol Intake frequency: a few times a week Drug use: Never Substance use type: does not use Do you feel safe at home: Yes Do you feel safe in your relationship?: Yes Exam Narrative Exam Narrative: Constitutional: well and [id number], pleasant, conversing normally HENT: head atraumatic/normocephalic/normal inspection, mucous membranes moist Eyes: conjunctiva normal, sclera normal, complete left eyelid ptosis, left pupil 5 mm with no direct reaction to light, positive consensual reaction to light, right pupil 3 mm equal round reactive, left eye with impaired superior inferior and right lateral extraocular movements, left eye does not cross midline, normal extraocular movements of the right eye, normal examination of the right eyelid, no periorbital edema or rash bilaterally Neck: no stridor, normal ROM, trachea midline Chest: normal inspection Resp: normal work of breathing, LCTAB Cardio: normal rate, normal rhythm, no murmur appreciated Skin: warm, dry, normal color, no rash Neuro: alert, not altered, motor 5 out of 5 throughout, cranial nerve III palsy on left as noted above, neurologic exam otherwise nonfocal with cranial nerves otherwise intact, normal gait, normal tone Ext: no edema, moving all extremities equally Psych: normal mood, normal affect, normal behavior Course Vital Signs Vital signs: Vital Signs Temperature 36.9 C 10/21/19 08:54 Pulse 76 10/21/19 08:54 Blood Pressure 208/108 H 10/21/19 08:54 Pulse Oximetry 98 10/21/19 08:54 Temperature 36.9 C 10/21/19 08:54 Temperature Source Temporal Artery Scan 10/21/19 08:54 Pulse 76 10/21/19 08:54 Respiratory Effort Non-Labored 10/21/19 08:57 Blood Pressure 208/108 H 10/21/19 08:54 Blood Pressure Position Sitting 10/21/19 08:54 Pulse Oximetry 98 10/21/19 08:54 Oxygen Delivery Method Room Air 10/21/19 08:54 Oxygen Flow Rate 0 10/21/19 08:54
[2019-10-21 11:42] LABS: Abs Immature Grans 0.03 k/cumm (0.0-0.09); Absolute Basophil Count 0.01 k/cumm (0.0-0.2); Absolute Eosinophil Count 0.05 k/cumm (0.0-0.7); Absolute Lymphocyte Count 1.51 k/cumm (1.2-3.4); Absolute Monocyte Count 0.63 k/cumm (0.11-0.7); Absolute Neutrophil Count 6.11 k/cumm (1.2-6.7); Basophils % 0.1; Eosinophils % 0.6; HCT 45.9 % (40.0-50.0); HGB 15.5 g/dL (13.5-17.5); Immature Grans % 0.4 %; Lymphocytes % 18.1; Mean Corp. HGB Concentration 33.8 g/dL (32.0-36.0); Mean Corpuscular Hemoglobin 28.9 pg (27.0-33.0); Mean Corpuscular Volume 85.5 fL (80-95); Mean Platelet Volume 12.3 fL (8.0-11.0); Monocytes % 7.6; Neutrophils % 73.2; Platelet Count 158 x1000/uL (130-400); RBC 5.37 m/cumm (4.50-6.00); RBC Distribution Width 14.3 % (11.8-14.1); White Blood Cell Count 8.34 k/cumm (4.4-10.8)
[2019-10-21 11:50] LABS: Anion Gap 8.6 mmol/L (3-11); BUN 16 mg/dL (7-18); CO2 27.4 mmol/L (21.0-32.0); CREATININE 0.92 mg/dL (0.70-1.30); Calcium 8.8 mg/dL (8.5-10.1); Chloride 101 mmol/L (98-107); Glucose 97 mg/dL (74-106); Potassium 3.9 mmol/L (3.5-5.1); Sodium 137 mmol/L (136-145)
[2019-10-21 11:52] LABS: Prothrombin Time 9.9 sec (9.3-11.0)
== END 2019-10-21 13:42 ==
PROVIDERS: Emergency Provider Student in an Organized Health Care Education/Training Program; PCP Nurse Practitioner Family
DX: G52.8 Disorders of other specified cranial nerves (principal); I67.1 Cerebral aneurysm, nonruptured; R51 Headache; I10 Essential (primary) hypertension
CPT/HCPCS: 36415; 80048; 93005; 99285; 70450; 85025; 85610; 93010; 99284

== ENCOUNTER 2019-11-05 06:43 | Emergency (ER) | payer BC, SELFPAY ==
[2019-11-05 06:51] VITALS: BP 171/104; PULSE 62; RESP 16; TEMP 36.4; O2SAT 96
--- NOTE | 2019-11-05 06:55 | ED.GENADUL_ITS ---
Discharge Plan Disposition Patient Disposition: HOME Condition: Improving Discharge Details Chief Complaint: Headache Clinical Impression: Headache Primary Care Provider: Henri Kern ED Provider: Nirav Mejia Home Meds and New Rx's Prescriptions: New tramadol 50 mg tablet 50 mg PO BID PRN (Reason: pain) Qty: 5 RF: 0 No Action lisinopril 20 mg Tablet 40 mg PO DAILY RF: 0 omeprazole 20 mg Capsule,Delayed Release(Dr/Ec) 20 mg PO DAILY RF: 0 clopidogrel 75 mg tablet 75 mg PO DAILY RF: 0 aspirin 325 mg tablet,delayed release (DR/EC) 325 mg PO DAILY RF: 0 atenolol 50 mg tablet 50 mg PO DAILY RF: 0 rosuvastatin 10 mg tablet 10 mg PO HS RF: 0 Discharge Instructions Instructions: General Headache (ED) Additional Instructions: Please follow-up with [facility] to reschedule your outpatient appointment. Continue Tylenol 650 mg every 4-6 hours as needed for pain. May use the provided tramadol if needed for breakthrough/severe pain. Return to the ER for recurrent or worsening headache, development of new difficulty speaking, new gait difficulty, new facial droop, or any other acute concerns. 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 Has significant left frontal headache since last night. Has no new neurologic deficits. Had developed left 3rd nerve palsy on previous ED visit which resulted in transfer to [facility]. He is on aspirin and Plavix currently. We will establish IV and get basic labs including coags. Noncontrast CT to rule out bleed. Morphine and Zofran ordered for symptomatic control of nausea and pain. Will need to discuss with [facility] once imaging return. Case to be turned over to oncoming physician, Dr. Mejia. Medical Records Medical records reviewed: Yes I reviewed the patient's medical records. <Nirav Mejia MD - Last Filed: 11/05/19 11:21> Received signout from Dr. Villanueva. Please see his note regarding details the patient's presentation, history, plan of care. Patient CT scan was without acute intracranial findings. His headache improved with medication. I discussed the case with Dr Mikey Nobles of [facility], who recommended repeat CTA to ensure no interval change in known aneurysms. This was performed withut any acute change - see formal report. Discussed with the patient utility of lumbar puncture to exclude trace red blood cells in the CSF. He states he is improving, he trialed p.o. without difficulty, stated he wished to defer lumbar puncture noting his subjective improvement. Patient requested improved guidance on analgesia for home given his persistent headaches over weeks time. He will continue [id number] use of Tylenol, will add small number of tramadol for which she was consented. He is stable and improving. He will follow-up with [facility] as previously planned. He understands return precautions to the ER. Lab Data Lab results reviewed: Yes I reviewed the patient's lab results. Labs: Laboratory Results - last 24 hr 11/05/19 11/05/19 11/05/19 07:20 07:20 07:20 WBC 11.47 H RBC 5.07 Hgb 14.7 Hct 44.0 MCV 86.8 MCH 29.0 MCHC 33.4 RDW 14.7 H Plt Count 177 MPV 12.1 H Immature Gran % 0.2 Neutrophils % 80.3 Lymphocytes % 11.9 Monocytes % 6.7 Eosinophils % 0.8 Basophils % 0.1 Absolute Neutrophils 9.21 H Absolute Lymphocytes 1.36 Absolute Monocytes 0.77 H Absolute Eosinophils 0.09 Absolute Basophils 0.01 PT 9.9 INR 1.0 APTT 23.9 Sodium 141 Potassium 4.0 Chloride 106 Carbon Dioxide 28.6 Anion Gap 6.4 BUN 23 H Creatinine 0.85 Estimated GFR/1.73 m2 >= 60.00 Glucose 126 H Calcium 8.7 HPI <Daljit Villanueva MD - Last Filed: 11/05/19 07:32> General Mode of arrival: ambulatory . Date/Time Provider Initiated Documentation: 11/05/19 06:44 . Limitations to Documentation: no limitations . Information obtained by: patient, RN notes reviewed and old records reviewed . HPI Narrative: Patient presents to ED with complaint of left frontal headache. Patient was seen here towards the end of September for headaches. Subsequently developed left cranial nerve III palsy. He was transferred to [facility]. He had coiling of an aneurysm found in the posterior communicating artery. Still has an aneurysm in the left anterior cchoroidal artery. That was not coiled. He was told he would need further procedures. He is currently on aspirin and Plavix. He has had mild intermittent headaches since the procedures at the end of September. Last night developed severe headache. Reports Advil did not help but Tylenol did. However headache is waxed and waned all night. He has mild nausea. He called [facility] this morning and was referred to the emergency department for e valuation. He denies being ill with no fever, cough, respiratory symptoms. He denies any new neurologic symptoms. He denies dizziness or gait disturbance. Related Data Home Medications Medication Instructions Recorded Confirmed lisinopril 40 mg PO DAILY 10/20/19 11/05/19 omeprazole 20 mg PO DAILY 10/20/19 11/05/19 aspirin 325 mg PO DAILY 11/05/19 11/05/19 atenolol 50 mg PO DAILY 11/05/19 11/05/19 clopidogrel 75 mg PO DAILY 11/05/19 11/05/19 rosuvastatin 10 mg PO HS 11/05/19 11/05/19 tramadol 50 mg PO BID PRN #5 tab 11/05/19 Previous Rx's Medication Instructions Recorded tramadol 50 mg PO BID PRN #5 tab 11/05/19 Allergies Allergy/AdvReac Type Severity Reaction Status Date / Time Penicillins AdvReac Intermediate Nausea Unverified 10/21/19 12:49 General Stated Complaint: Headache ELIZABETH: 2 Review of Systems <Daljit Villanueva MD - Last Filed: 11/05/19 07:32> Narrative: 05/13 Review of Systems completed and is negative except as stated above in HPI (Systems reviewed: Const, Eyes, ENT, Resp, CV, GI, , MSK, Skin, Neuro) PFSH <Daljit Villanueva MD - Last Filed: 11/05/19 07:32> Medical History (Updated 11/05/19 @ 11:07 by Nirav Mejia MD) Aneurysm, cerebral, nonruptured (Chronic) COPD (chronic obstructive pulmonary disease) (Chronic) GERD (gastroesophageal reflux disease) (Chronic) HTN (hypertension) (Chronic) Hypercholesterolemia (Chronic) Surgical History (Updated 11/05/19 @ 07:11 by Daljit Villanueva MD) S/P coil embolization of cerebral aneurysm (Acute) S/P hernia repair (Acute) Social History Smoking/Tobacco Use Status: Former Tobacco Use Alcohol Intake: current Alcohol Intake frequency: holidays/special occasions only Drug use: Never Substance use type: does not use Do you feel safe at home: Yes Do you feel safe in your relationship?: Yes Exam <Daljit Villanueva MD - Last Filed: 11/05/19 07:32> Narrative Exam Narrative: Vitals: Afebrile. Hypertensive but normal heart rate and respiratory rate. Normal room air pulse oximetry. Const: Obese male in NAD. HEENT: NC/AT. Complete L ptosis. Eyes: Normal conjunctiva and sclera. Right pupil round and reactive. Right extraocular muscles intact. Left pupil fixed at mid range with no real reactivity. Has lateral gaze preference on left. Cannot move left eye medially. Neck: Supple. Trachea midline. Lungs: Normal respiratory effort. Cor: Good radial pulses. GI: Soft and ND. Neuro: A+O x 3. Normal speech, mentation, gait. Cranial nerves II - XII grossly intact except for left cranial nerve III palsy. No gross motor or sensory deficit. Normal [id number]. Ext: No C/C. Skin: Warm and dry. Large areas of ecchymosis bilateral arms. Course <Daljit Villanueva MD - Last Filed: 11/05/19 07:32> Vital Signs Vital signs: Vital Signs Temperature 97.5 F L 11/05/19 06:51 Pulse 62 11/05/19 06:51 Respiratory Rate 16 11/05/19 06:51 Blood Pressure 171/104 H 11/05/19 06:51 Pulse Oximetry 96 11/05/19 06:51 Temperature 97.5 F L 11/05/19 06:51 Temperature Source Skin 11/05/19 06:51 Pulse 62 11/05/19 06:51 Respiratory Rate 16 11/05/19 06:51 Respiratory Effort 11/05/19 06:54 Blood Pressure 171/104 H 11/05/19 06:51 Blood Pressure Position Sitting 11/05/19 06:51 Pulse Oximetry 96 11/05/19 06:51 Oxygen Delivery Method Room Air 11/05/19 06:51 Oxygen Flow Rate 0 11/05/19 06:51 Sign Out <Daljit Villanueva MD - Last Filed: 11/05/19 07:32> Sign Out Data: Sign Out Comment: Pending CT scan/read and discussion with [facility]. Last updated by Daljit Villanueva MD at 11/05/19 07:49
[2019-11-05 07:28] LABS: Abs Immature Grans 0.02 k/cumm (0.0-0.09); Absolute Basophil Count 0.01 k/cumm (0.0-0.2); Absolute Eosinophil Count 0.09 k/cumm (0.0-0.7); Absolute Monocyte Count 0.77 k/cumm (0.11-0.7); Absolute Neutrophil Count 9.21 k/cumm (1.2-6.7); Basophils % 0.1; Eosinophils % 0.8; HGB 14.7 g/dL (13.5-17.5); Immature Grans % 0.2 %; Lymphocytes % 11.9; Mean Corp. HGB Concentration 33.4 g/dL (32.0-36.0); Mean Corpuscular Volume 86.8 fL (80-95); Mean Platelet Volume 12.1 fL (8.0-11.0); Monocytes % 6.7; Neutrophils % 80.3; Platelet Count 177 x1000/uL (130-400); RBC 5.07 m/cumm (4.50-6.00); RBC Distribution Width 14.7 % (11.8-14.1); White Blood Cell Count 11.47 k/cumm (4.4-10.8)
[2019-11-05 07:33] LABS: Absolute Lymphocyte Count 1.36 k/cumm (1.2-3.4)
[2019-11-05] MEDS: MORPHine 10 MG/ML VIAL 5 MG IVP (07:33)
[2019-11-05] MEDS: Ondansetron 4 MG/2 ML VIAL IVP (07:34)
[2019-11-05 07:37] LABS: Anion Gap 6.4 mmol/L (3-11); BUN 23 mg/dL (7-18); CO2 28.6 mmol/L (21.0-32.0); CREATININE 0.85 mg/dL (0.70-1.30); Calcium 8.7 mg/dL (8.5-10.1); Chloride 106 mmol/L (98-107); Glucose 126 mg/dL (74-106); Sodium 141 mmol/L (136-145)
--- NOTE | 2019-11-05 07:37 | DI.CT_ITS ---
EXAM: CT HEAD WO CLINICAL HISTORY: recent aneursymal coils; worseing L frontal H/A TECHNIQUE: COMPARISON: No exams were available for comparison FINDINGS: Noncontrast cranial CT was performed. Patient has reportedly had recent aneurysm clipping and stent and metallic artifact is present associated with [id number] on the left. There is no evidence of acute intracranial hemorrhage, mass effect, or midline shift. Ventricular sy stem is normal in appearance. Orbital and temporal bone structures appear intact. IMPRESSION: No evidence of acute intracranial process.
[2019-11-05 07:42] LABS: PTT Activated 23.9 sec (21.0-31.4); Prothrombin Time 9.9 sec (9.3-11.0)
--- NOTE | 2019-11-05 08:02 | DI.VRAD_ITS ---
PROCEDURE INFORMATION: Exam: CT Head Without Contrast Exam date and time: 11/05/2019 7:37 AM Age: 59 years old Clinical indication: Pain; Headache not specified; Patient HX: Recent aneurysmal coils, worsening left frontal h/a TECHNIQUE: Imaging protocol: Computed tomography of the head without contrast. Radiation optimization: All CT scans at this facility use at least one of these dose optimization techniques: automated exposure control; mA and/or kV adjustment per patient size (includes targeted exams where dose is matched to clinical indication); or iterative reconstruction. COMPARISON: CT HEAD - STROKE PROTOCOL 10/21/2019 9:40 AM FINDINGS: Tubes, catheters and devices: Interval left-sided stent and aneurysm embolization. The metal coils are causing beam hardening artifact. Brain: No acute brain parenchymal abnormality. No intracranial hemorrhage. No extraaxial fluid collections. Ventricles: No hydrocephalus. Bones/joints: No calvarial fracture. Sinuses: There is minimal mucoperiosteal thickening, but no fluid in the visualized paranasal sinuses. Mastoid air cells: The visualized mastoid air cells are aerated. Soft tissues: No acute soft tissue abnormality. IMPRESSION: No acute intracranial abnormality. Dictated and Authenticated by: Neal Hinson MD. Ordering:EDUAR Bocanegra MD
[2019-11-05 08:27] VITALS: BP 174/87; PULSE 64; RESP 16; TEMP 36.8; O2SAT 96
[2019-11-05] MEDS: ACETAMINOPHEN 1,000 MG/100 ML BTL 400 MG IVPB (08:27)
--- NOTE | 2019-11-05 09:00 | DI.CT_ITS ---
EXAM: CT BRAIN NECK CTA CLINICAL HISTORY: known aneurysm, L frontal headache TECHNIQUE: Axial CT angiography was performed with multi-slice acquisition and multi-planar and/or 3D reconstructions. COMPARISON: CT BRAIN NECK CTA from 10/20/2019 CT HEAD WO from 11/05/2019 FINDINGS: CT angiography of the cervicocranial region was performed and is compared with prior CTA of 10/20/19. 85 cc of Omnipaque 350 was injected intravenously. Images obtained through the lung apices are unremarkable. No cervical mass or adenopathy. Tracheo l aryngeal structures appear intact. Aortic arch appears intact. Common, internal, and external carotid arteries are unremarkable through the cervical region. Vertebral arteries are unremarkable with left dominant circulation. Intracranially, the [place] region on the left is obscured by aneurysm clips and stent, plac ed since the prior study. Visualized portions of right and left internal carotid arteries appear int act. Question tiny ICA aneurysm supraclinoid on the right described previously, grossly unchanged. Vertebral and basilar arteries are unremarkable. The anterior, middle, and posterior cerebral arteries are all of very small diameter. No gross occlu balaji. No additional aneurysm identified. No significant change from prior study. IMPRESSION: Interval left aneurysm clips and ICA stent since the prior study, no other significant daugherty is seen. No evidence of vascular occlusion.
[2019-11-05] MEDS: Atenolol 50 MG TAB PO (09:27)
[2019-11-05] MEDS: Lisinopril 20 MG TAB 40 MG PO (09:27)
[2019-11-05] MEDS: Normal Saline 250 ML IV (09:27)
[2019-11-05 09:28] VITALS: BP 146/87; PULSE 68; RESP 16; TEMP 36.6; O2SAT 94
[2019-11-05] MEDS: Ondansetron 4 MG/2 ML VIAL (09:49)
[2019-11-05] MEDS: Omnipaque 350 MG/ML 100 ML BTL IJ (10:09)
[2019-11-05] MEDS: Normal Saline - Diluent 50 ML VIAL IV (10:10)
[2019-11-05 11:10] VITALS: BP 151/79; PULSE 62; RESP 16; TEMP 36.7; O2SAT 98
== END 2019-11-05 11:20 | disposition home or self-care (01) ==
PROVIDERS: Emergency Medicine; Emergency Provider Emergency Medicine; PCP Nurse Practitioner Family
DX: R51 Headache (principal); I67.1 Cerebral aneurysm, nonruptured
CPT/HCPCS: 36415; 70496; 70498; 80048; 96361; 96365; 96375; 96376; 99284; 70450; 85025; 85610; 85730; J0131; J2270; J2405; J3490

== ENCOUNTER 2020-10-05 15:07 | Outpatient (REF) | payer BC, SELFPAY ==
[2020-10-05 13:19] LABS: Anion Gap 8.4 mmol/L (3-11); BUN 15 mg/dL (7-18); CO2 28.6 mmol/L (21.0-32.0); Calcium 8.9 mg/dL (8.5-10.1); Calculated LDL 66 mg/dL (<100); Chloride 105 mmol/L (98-107); Cholesterol 127 mg/dL (<200); Glucose 99 mg/dL (74-106); HDL Cholesterol 47 mg/dL (40-60); Potassium 4.3 mmol/L (3.5-5.1); Sodium 142 mmol/L (136-145); Triglyceride 72 mg/dL (<150)
== END 2020-10-05 15:08 | disposition home or self-care (01) ==
LOC: NCHCN 15:07
PROVIDERS: PCP Nurse Practitioner Family; Visit Provider Internal Medicine
DX: R73.03 Prediabetes (principal); E78.5 Hyperlipidemia, unspecified; I10 Essential (primary) hypertension
CPT/HCPCS: 80048; 80061; 83036

== ENCOUNTER 2021-10-08 08:20 | Outpatient (REF) | payer BC, SELFPAY ==
[2021-10-08 14:56] LABS: ALT 31 U/L (16-63); AST 19 U/L (15-37); Alkaline Phosphatase 67 U/L (46-116); Anion Gap 8.8 mmol/L (3-11); BUN 19 mg/dL (7-18); Bilirubin, Total 1.4 mg/dL (0.2-1.0); CO2 27.2 mmol/L (21.0-32.0); Calculated LDL 60 mg/dL (<100); Chloride 104 mmol/L (98-107); Cholesterol 120 mg/dL (<200); Glucose 102 mg/dL (74-106); HDL Cholesterol 50 mg/dL (40-60); Potassium 4.3 mmol/L (3.5-5.1); Sodium 140 mmol/L (136-145); Triglyceride 51 mg/dL (<150)
[2021-10-08 15:10] LABS: Calcium 8.8 mg/dL (8.5-10.1)
[2021-10-08 15:12] LABS: Hemoglobin A1C 5.8 % (<5.7)
== END 2021-10-08 08:21 | disposition home or self-care (01) ==
LOC: NCHCN 08:20
PROVIDERS: Family Medicine; PCP Nurse Practitioner Family; Visit Provider Nurse Practitioner Family
DX: I10 Essential (primary) hypertension (principal); E78.5 Hyperlipidemia, unspecified; R73.03 Prediabetes; E66.9 Obesity, unspecified
CPT/HCPCS: 80053; 80061; 83036